=== PATIENT | female | born 1975 | race Caucasian/White ===

== ENCOUNTER 2017-10-02 16:03 | Outpatient (CLI) | payer BC | END 2017-10-02 16:04 | disposition home or self-care (01) | LOC: BICMAMMO 16:03 | PROVIDERS: ATTEND Family Medicine | DX: Z12.31 Encounter for screening mammogram for malignant neoplasm of breast (principal) | CPT/HCPCS: 77063; 77067 ==

== ENCOUNTER 2018-11-16 15:34 | Outpatient (CLI) | payer BC, SELFPAY ==
--- NOTE | 2018-11-16 16:22 | MMO ---
Bilateral MAMMO Bilat Screen [facility]. CLINICAL HISTORY: Patient is 43 years old and is seen for screening. The patient has no family history of breast cancer. The patient has no personal history of cancer. VIEWS: The views performed were: bilateral craniocaudal with tomosynthesis and bilateral mediolateral oblique with tomosynthesis. FILMS COMPARED: The present examination has been compared to prior imaging studies performed at [facility] on 04/14/2016 and 10/02/2017. MAMMOGRAM FINDINGS: The breasts are extremely dense, which may lower the sensitivity of mammography. There is an oval mass measuring 6 millimeters with circumscribed margins seen in the sub-areolar region of the right breast. In the left breast, there are no suspicious masses, calcifications or areas of architectural distortion. IMPRESSION: MASS IN THE RIGHT BREAST REQUIRES ADDITIONAL EVALUATION. AN ULTRASOUND EXAM IS RECOMMENDED. THE RESULTS OF THIS EXAM WERE SENT TO THE PATIENT. ACR BI-RADS Category 0 - Incomplete: Need additional imaging evaluation. [facility] will notify the patient of the need for additional imaging services. MAMMOGRAPHY NOTE: 1. A negative mammogram report should not delay a biopsy if a dominant of clinically suspicious mass is present. 2. Approximately 10% to 15% of breast cancers are not detected by mammography. 3. Adenosis and dense breasts may obscure an underlying neoplasm. Reported by: JOSEFINA HERRERA MD Electonically Signed: [id number]
== END 2018-11-16 15:35 | disposition home or self-care (01) ==
LOC: BICMAMMO 15:34
PROVIDERS: ATTEND Obstetrics & Gynecology
DX: Z12.31 Encounter for screening mammogram for malignant neoplasm of breast (principal); N63.41 Unspecified lump in right breast, subareolar
CPT/HCPCS: 77063; 77067

== ENCOUNTER 2018-11-26 07:49 | Outpatient (CLI) | payer BC ==
--- NOTE | 2018-11-26 10:22 | ULT ---
LIMITED ULTRASOUND RIGHT BREAST: Date: 11/26/18 HISTORY: Mass noted in the right breast on screening mammography. COMPARISON: Mammogram on 11/16/18. FINDINGS: Limited sonographic evaluation of the right breast was performed in the region of the mammographic ab normality in the retroareolar region of right breast. At the 12 o'clock position of the right breast, there is a circumscribed anechoic cystic lesion with posterior acoustic enhancement measuring approx imately 0.8 cm in greatest dimensions and demonstrates characteristics compatible with a cyst. This d oes correlate with mammographic findings. IMPRESSION: 1. BI-RADS Category 2 - Benign findings. Routine annual mammographic screening is recommended. 2. Small cyst right breast retroareolar region. POS: [facility]
== END 2018-11-26 07:50 | disposition home or self-care (01) ==
LOC: BICULT 07:49
PROVIDERS: ATTEND Obstetrics & Gynecology
DX: N63.10 Unspecified lump in the right breast, unspecified quadrant (principal); N60.01 Solitary cyst of right breast

== ENCOUNTER 2021-12-07 14:59 | Outpatient (CLI) | payer BC | END 2021-12-07 15:00 | disposition home or self-care (01) | LOC: BICULT 14:59 | PROVIDERS: ATTEND Student in an Organized Health Care Education/Training Program | DX: N63.10 Unspecified lump in the right breast, unspecified quadrant (principal) ==

== ENCOUNTER 2022-11-28 15:30 | Outpatient (CLI) | payer BC | END 2022-11-28 15:31 | disposition home or self-care (01) | LOC: BICMAMMO 15:30 | PROVIDERS: ATTEND Obstetrics & Gynecology | DX: Z12.31 Encounter for screening mammogram for malignant neoplasm of breast (principal) | CPT/HCPCS: 77063; 77067 ==

== ENCOUNTER 2023-03-15 09:47 | Outpatient (CLI) | payer BC | END 2023-03-15 09:48 | disposition home or self-care (01) | LOC: ULT 09:47 | PROVIDERS: ATTEND Physician Assistant | DX: N92.6 Irregular menstruation, unspecified (principal); N83.202 Unspecified ovarian cyst, left side; N85.00 Endometrial hyperplasia, unspecified; R93.89 Abnormal findings on diagnostic imaging of other specified body structures | CPT/HCPCS: 76856 ==

== ENCOUNTER 2023-11-30 15:23 | Outpatient (CLI) | payer BC | END 2023-11-30 15:24 | disposition home or self-care (01) | LOC: BICMAMMO 15:23 | PROVIDERS: ATTEND Physician Assistant | DX: Z12.31 Encounter for screening mammogram for malignant neoplasm of breast (principal) | CPT/HCPCS: 77063; 77067 ==